=== PATIENT | male | born 1945 | race Caucasian/White ===

== ENCOUNTER → 2024-08-26 09:29 | Outpatient (REF) | payer OTHER, SELFPAY | LOC: RAD 09:29 | PROVIDERS: ATTENDING PHYSICIAN Podiatrist; FAMILY PHYSICIAN Family Medicine | DX: M79.672 Pain in left foot (principal); M79.671 Pain in right foot | CPT/HCPCS: 73630 ==

== ENCOUNTER → 2024-12-23 09:21 | Outpatient (REF) | payer OTHER, SELFPAY | LOC: MRI 3T 09:21 | PROVIDERS: ATTENDING PHYSICIAN Specialist; FAMILY PHYSICIAN Family Medicine | DX: M17.11 Unilateral primary osteoarthritis, right knee (principal); M79.604 Pain in right leg | CPT/HCPCS: 73721 ==